=== PATIENT | male | born 1950 | race Caucasian/White ===

== ENCOUNTER → 2021-10-03 14:11 | Outpatient (BNVA) | payer MEDICARE, SELFPAY | PROVIDERS: PCP Family Medicine; Visit Provider Nurse Practitioner Family | DX: S89.91XA Unspecified injury of right lower leg, initial encounter (principal); X50.1XXA Overexertion from prolonged static or awkward postures, initial encounter; M25.561 Pain in right knee | CPT/HCPCS: 73560; 73565; 99204 ==

== ENCOUNTER 2021-10-30 08:34 | Outpatient (CLI) | payer MEDICARE, SELFPAY ==
--- NOTE | 2021-10-30 08:42 | MR_ITS ---
WS: [id number] MRI RIGHT KNEE NONCONTRAST TECHNIQUE: Axial PD, coronal PD fat sat, coronal PD, sagittal PD, and sagittal PD fat-sat images obta ined. CLINICAL INFORMATION: Knee Injury COMPARISON: None. FINDINGS: Distal quadriceps and patella tendons are intact. Normal ACL and PCL. Small suprapatellar effusion. C omplex tear posterior horn medial meniscus extending to the articular surface and meniscal root. This extends to the free edge of the meniscus. Peripheral extrusion of the meniscus. Moderate chondromalacia patella. No subchondral edema. Normal lateral collateral ligament. Edema and fluid along the medial collateral ligament consistent with grade 1-2 injury. MCL appears grossly inta ct. Soft tissue edema about the medial aspect of the knee. Mild chondromalacia involving the medial a nd lateral joint compartments. MR/MR knee RT wo con* [id number] IMPRESSION: 1. Normal ACL and PCL. 2. Complex tear involving the posterior horn medial meniscus extending to the articular surface with blunting of the posterior horn. This extends to the meni scal root and free edge of the meniscus with peripheral extrusion. Associated d iffuse edema. 3. Grade 1-2 injury involving the MCL. 4. Moderate chondromalacia patella. 5. Small suprapatellar effusion with subcutaneous edema about the medial knee soft tissues. Outbridge grading: grade III: partial-thickness cartilage loss with focal ulcer ation
== END 2021-10-30 08:35 | disposition home or self-care (01) ==
LOC: RAD 08:35
PROVIDERS: PCP Family Medicine; Visit Provider Nurse Practitioner Family
DX: S83.231A Complex tear of medial meniscus, current injury, right knee, initial encounter (principal); X58.XXXA Exposure to other specified factors, initial encounter; M22.41 Chondromalacia patellae, right knee; M25.461 Effusion, right knee
CPT/HCPCS: 73721

== ENCOUNTER → 2021-11-20 10:52 | Outpatient (BNVA) | payer MEDICARE, SELFPAY | PROVIDERS: PCP Family Medicine; Visit Provider Specialist | DX: S83.241A Other tear of medial meniscus, current injury, right knee, initial encounter (principal); X50.9XXA Other and unspecified overexertion or strenuous movements or postures, initial encounter; M17.11 Unilateral primary osteoarthritis, right knee | CPT/HCPCS: 20610; 99213; J1100; J2795; J3301 ==